=== PATIENT | male | born 1970 | race Caucasian/White ===

== ENCOUNTER 2024-04-13 21:15 | Emergency (ER) | payer OTHER ==
[~2024-04-13] VITALS: Ht 177.8 cm; Wt 150.0 kg
[2024-04-13 21:49] VITALS: TEMP 98.2
[2024-04-13] MEDS ORDERED: Cephalexin 500 MG CAP PO ONE (23:45)
[2024-04-13 23:57] VITALS: BP 159/97; PULSE 82
== END 2024-04-13 23:57 | disposition home or self-care (01) ==
LOC: COL.ER 21:15
DX: S81.012A Laceration without foreign body, left knee, initial encounter (principal); Z23 Encounter for immunization; W01.198A Fall on same level from slipping, tripping and stumbling with subsequent striking against other object, initial encounter

== ENCOUNTER 2024-08-27 15:00 | Outpatient (RCR) | payer BC | END 2024-08-28 | disposition home or self-care (01) | LOC: WSOT | DX: M65.312 Trigger thumb, left thumb (principal) | CPT/HCPCS: L3933 ==